=== PATIENT | male | born 1970 | race Caucasian/White ===

== ENCOUNTER → 2019-08-13 | Outpatient (CLI) | payer BC ==
[~2019-08-13] MED LIST: ALEVE PO; APPLE CIDER VI300 MG PO; GINKGO BILOBA120 MG PO; GINSENG COMPLE1 EACH PO; GLUCOSAMINE1000 MG PO; IBUPROFEN200 MG PO; L-ARGININE500 MG PO; MELATONIN PO; RANITIDINE HCL150 MG PO; VITAMIN D3 PO
[2019-08-13 13:18] LABS: BASOPHILS # (AUTO) 0.1 (0.0-0.1); BASOPHILS % 0.6 % (0.0-1.0); EOSINOPHILS # (AUTO) 0.2 (0.0-0.4); EOSINOPHILS % 2.1 % (0.0-6.0); HEMATOCRIT 48.1 % (38.2-49.6); LYMPHOCYTES # (AUTO) 1.7 (1.0-3.2); LYMPHOCYTES % 22.4 % (18.0-39.1); MEAN CORPUSCULAR HEMOGLOBIN 29.8 pg (28-32); MEAN CORPUSCULAR HGB CONC 35.3 g/dL (31-35); MEAN CORPUSCULAR VOLUME 84.4 fL (81-99); MONOCYTES # (AUTO) 0.6 (0.2-0.8); MONOCYTES % 7.3 % (4.4-11.3); NEUTROPHILS # (AUTO) 5.2 (2.1-6.9); NEUTROPHILS % 67.2 % (38.7-80.0); PLATELET COUNT 187 x10e3/uL (140-360); RED CELL DISTRIBUTION WIDTH 12.3 % (11.7-14.4)
[2019-08-13 13:40] LABS: ALANINE AMINOTRANSFERASE 51 IU/L (0-55); ALBUMIN 4.1 g/dL (3.5-5.0); ALBUMIN/GLOBULIN RATIO 1.3 (0.8-2.0); ALKALINE PHOSPHATASE 63 IU/L (40-150); AMYLASE 67 U/L (25-125); BLOOD UREA NITROGEN 15 mg/dL (7-26); BUN/CREATININE RATIO 14 (6-25); CALCIUM 9.6 mg/dL (8.4-10.2); CARBON DIOXIDE 30 mmol/L (22-29); CHLORIDE 102 mmol/L (98-107); CREATININE, SERUM 1.06 mg/dL (0.72-1.25); EST GLOMERULAR FILTRATION RATE > 60 ML/MIN (60-); GLUCOSE 85 mg/dL (74-118); LIPASE 52 U/L (8-78); SODIUM 139 mmol/L (136-145)
[2019-08-13 14:53] LABS: ERYTHROCYTE SEDIMENTATION RATE 4 mm/hr (0-13)
== END ==
LOC: LAB 12:58
PROVIDERS: ATTEND Internal Medicine Gastroenterology
DX: R14.0 Abdominal distension (gaseous) (principal)
CPT/HCPCS: 36415; 80053; 82150; 83690; 85025; 85651; 86140

== ENCOUNTER → 2019-09-06 | Day surgery (SDC) | payer BC ==
[~2019-09-06] MED LIST changes: +FENTANYL CITRATE/PF 100MCG/2 ML INJ ONE; +HYOSCYAMINE 0.125 MG TAB ONE; +MIDAZOLAM HCL 5MG/ML 2ML VIAL ONE; +PROPOFOL IV EMULSION 10 MG/ML 50 ML VIAL ONE
[2019-09-06 14:55] VITALS: BP 134/70
--- NOTE | 2019-10-25 08:59 | Operative Report ---
DATE OF PROCEDURE: 09/06/2019 SURGEON: Glenn Kay MD PROCEDURES: EGD with biopsies and colonoscopy with biopsies. INDICATIONS FOR EGD: Upper abdominal pain, bloating. INDICATIONS FOR COLONOSCOPY: Lower abdominal pain, diarrhea, father with colon cancer. MEDICATIONS: The patient was done under MAC, please see anesthesiologist's note. PROCEDURE IN DETAIL: With the patient in left lateral decubitus position, a flexible fiberoptic Olympus gastroscope was introduced into the esophagus under direct visualization without any difficulty. There was some patchy erythema noted in distal esophagus. The scope was then advanced with ease into the stomach. Mucosa overlying the antrum and the body revealed some patchy intense erythema and moderate edema. Biopsies were obtained and sent to stain for H pylori. The pylorus was of normal contour and shape, was intubated with ease and the scope was advanced all the way to the second portion of the duodenum. Multiple minute ulcers were noted in the duodenal bulb and the second portion without active bleeding. Biopsies were obtained and sent to rule out sprue. Also, a minute nodule was noted in the duodenal bulb and that was biopsied. The scope was then withdrawn back into the stomach and retroflexed. Mucosa overlying the fundus and cardia appeared to be within normal limits. The scope was then straightened out, it was subsequently withdrawn. The patient tolerated the procedure well. IMPRESSION: 1. Distal esophagitis, mild. 2. Gastritis, biopsied. Biopsies sent to stain for H. pylori. 3. Duodenal ulcers, minute, several, bulb and 2nd portion of duodenum without active bleeding or stigmata of recent hemorrhage. 4. Rule out sprue. 5. Minute nodule, duodenal bulb, biopsied. PLAN: Follow up histology. Initiate Protonix 40 mg one p.o. q.a.m. before meals. The patient was then turned around. After adequate lubrication of the anal canal, a flexible fiberoptic Olympus colonoscope was inserted into the rectum with ease and advanced all the way to the cecum. The ileocecal valve was intubated and the scope was advanced into the terminal ileum. Biopsies were obtained. The scope was then withdrawn back into the colon. It was then withdrawn slowly. Mucosa overlying the ascending and the transverse appeared to be within normal limits. There was some patchy mild inflammatory changes noted in the descending colon, sigmoid, and rectum. Multiple random biopsies were obtained. The scope was then retroflexed into the distal rectum and small internal hemorrhoids were noted, none of which was actively bleeding. The scope was then straightened out, it was subsequently withdrawn after securing an adequate stool specimen that was sent for the appropriate stool studies. The patient tolerated procedure well. IMPRESSION: 1. Mild patchy left-sided colitis. 2. Internal hemorrhoids, none actively bleeding. PLAN: Follow up histology. Follow up stool studies. Start Bentyl 20 mg one p.o. t.i.d. Initiate VSL #3 one p.o. daily. Check CRP and stool calprotectin. The patient might benefit from a followup colonoscopy in [address] MD [facility] [place] /[id number]
== END | disposition home or self-care (01) ==
LOC: OR 08:50
PROVIDERS: ATTEND Internal Medicine Gastroenterology
DX: K51.50 Left sided colitis without complications (principal); K29.70 Gastritis, unspecified, without bleeding; K26.9 Duodenal ulcer, unspecified as acute or chronic, without hemorrhage or perforation; K31.89 Other diseases of stomach and duodenum; K59.00 Constipation, unspecified; K21.9 Gastro-esophageal reflux disease without esophagitis; K20.9 Esophagitis, unspecified; I10 Essential (primary) hypertension; R06.02 Shortness of breath; G47.33 Obstructive sleep apnea (adult) (pediatric); Z01.810 Encounter for preprocedural cardiovascular examination; Z68.30 Body mass index [BMI] 30.0-30.9, adult; Z80.0 Family history of malignant neoplasm of digestive organs
CPT/HCPCS: 43239; 45380; 83993; 87177; 87328; 87493; 93005; J2250; J2704; J3010; 45378

== ENCOUNTER 2021-09-02 10:32 | Emergency (ER) | payer BC, OTHER ==
[~2021-09-02] VITALS: Ht 177.8 cm; Wt 101.6 kg
[~2021-09-02 10:32] MED LIST changes: -FENTANYL CITRATE/PF 100MCG/2 ML INJ ONE; -HYOSCYAMINE 0.125 MG TAB ONE; -MIDAZOLAM HCL 5MG/ML 2ML VIAL ONE; -PROPOFOL IV EMULSION 10 MG/ML 50 ML VIAL ONE
== END 2021-09-02 11:02 | disposition home or self-care (01) ==
LOC: ER 10:35
DX: R10.33 Periumbilical pain (principal); R11.2 Nausea with vomiting, unspecified; K21.9 Gastro-esophageal reflux disease without esophagitis; K58.9 Irritable bowel syndrome, unspecified
CPT/HCPCS: 99282